=== PATIENT | female | born 1945 | race African-American/Black ===

== ENCOUNTER → 2024-04-01 | Emergency (ER) | payer MEDICARE, OTHER ==
[~2024-04-01] VITALS: Ht 142.2 cm; Wt 73.9 kg
[2024-04-01 10:20] VITALS: O2SAT 100
[2024-04-01 10:48] VITALS: BP 163/78; PULSE 67; RESP 18; O2SAT 97
[2024-04-01 11:35] VITALS: TEMP 97.7
[2024-04-01] MEDS: ACETAMINOPHEN 500MG TABLET PO ONE (11:35)
== END ==
LOC: ER 10:18
DX: S00.03XA Contusion of scalp, initial encounter (principal); J45.909 Unspecified asthma, uncomplicated; E11.9 Type 2 diabetes mellitus without complications; I10 Essential (primary) hypertension; W18.09XA Striking against other object with subsequent fall, initial encounter; Y93.01 Activity, walking, marching and hiking; Y92.89 Other specified places as the place of occurrence of the external cause; Y99.8 Other external cause status
CPT/HCPCS: 99284